=== PATIENT | male | born 1965 | race Caucasian/White ===

== ENCOUNTER 2020-08-25 14:26 | Observation (INO) ==
[2020-08-25] MEDS ORDERED: Aspirin 81 MG TAB.CHEW PO ONE (15:01)
[2020-08-25 15:40] LABS: Basophils % 0.5 %; Eosinophils # 0.1 K/mcL (0.0-0.6); Eosinophils % 0.8 %; Hematocrit 45.4 % (37.5-50.1); Hemoglobin 14.9 g/dL (12.9-16.9); Immature Granulocytes % 0.4 % (0-4); Lymphocytes # 1.7 K/mcL (0.6-4.6); Lymphocytes % 21.7 %; Mean Corpuscular HGB Conc 32.8 g/dL (31.6-35.5); Mean Corpuscular Volume 85.2 fL (83.0-100.0); Mean Platelet Volume 10.5 fL (9.4-12.4); Monocytes # 0.7 K/mcL (0.0-1.3); Monocytes % 8.7 %; Neutrophils # 5.3 K/mcL (1.6-8.9); Platelet Count 249 K/mcL (140-400); Red Blood Count 5.33 M/mcL (4.19-5.50); Red Cell Distribution Width 13.2 % (11.5-14.5); Segmented Neutrophils % 67.9 %; White Blood Count 7.8 K/mcL (4.3-11.1)
[2020-08-25 15:45] LABS: INR 1.1; Prothrombin Time 12.2 Seconds (9.4-12.1)
[2020-08-25 15:47] LABS: Activated Partial Thrombo Time 29.6 Seconds (26.0-36.0)
[2020-08-25 15:56] LABS: BUN/Creatinine Ratio 25 (6-26); Blood Urea Nitrogen 21 mg/dL (6-20); Calcium 9.1 mg/dL (8.6-10.3); Carbon Dioxide 24 mEq/L (23-29); Chloride 104 mEq/L (98-107); Glucose 89 mg/dL (70-105); Osmolality,Calculated 284 (280-300); Potassium 4.1 mEq/L (3.5-5.1); Sodium 136 mEq/L (136-145); eGFR For African Americans > 60 (> 60); eGFR For Non-African Americans > 60 (> 60)
[2020-08-25 15:57] LABS: Troponin I < 0.03 ng/mL (< 0.04)
[2020-08-25] MEDS ORDERED: Melatonin 3 MG TABLET PO PRN (17:02)
[2020-08-25] MEDS ORDERED: Acetaminophen 325 MG TABLET PO PRN (17:02)
[2020-08-26 05:56] LABS: Estimated Average Glucose 114 mg/dl; Hemoglobin A1C 5.6 %
[2020-08-26 06:10] LABS: BUN/Creatinine Ratio 33 (6-26); Blood Urea Nitrogen 27 mg/dL (6-20); Calcium 8.9 mg/dL (8.6-10.3); Carbon Dioxide 24 mEq/L (23-29); Chloride 107 mEq/L (98-107); Chol/HDL Ratio 4.6 (0-4.9); Cholesterol 156 mg/dL (< 200); Glucose 109 mg/dL (70-105); HDL Cholesterol 34 mg/dL (40-59); LDL Cholesterol,Calculated 93 mg/dL (< 100); Osmolality,Calculated 290 (280-300); Potassium 4.2 mEq/L (3.5-5.1); Sodium 137 mEq/L (136-145); Triglycerides 145 mg/dL (< 150); Troponin I < 0.03 ng/mL (< 0.04); eGFR For African Americans > 60 (> 60); eGFR For Non-African Americans > 60 (> 60)
[2020-08-26 06:21] LABS: Thyroid Stimulating Hormone 2.425 mcIU/mL (0.340-5.600)
[2020-08-26 06:39] VITALS: BP 112/69
[2020-08-26] MEDS ORDERED: Aspirin Enteric Coated 81 MG Tablet PO SCH (09:00)
[2020-08-26] MEDS ORDERED: Perflutren Lipid Microsphere 1.3 ML in 0.9 % Sodium Chloride 8.7 ML IVP PRN (09:05)
== END 2020-08-26 14:10 | disposition home or self-care (01) ==
LOC: 3BNU 14:26 → EMEROOARM 14:26 → SUATTDRO 16:21 → 3BNU 17:31
PROVIDERS: ADMIT Internal Medicine; ATTEND Internal Medicine